=== PATIENT | female | born 1955 | race Caucasian/White ===

== ENCOUNTER 2017-01-23 13:18 | Emergency (ER) | payer BC ==
[2017-01-23 13:38] VITALS: BP 139/83
--- NOTE | 2017-01-23 14:08 | UC ---
Throat Pain/Nasal Fady HPI - HPI Summary HPI Summary: Nasal congestion, ST, cough starting [address] worsened 4-5 days ago. Yesterday was very tired and slept for 3 hours in the afternoon. Thought she might have had a fever once over the weekend. Denies difficulty breathing. - History of Current Complaint Chief Complaint: UCRespiratory Stated Complaint: SORE THROAT Time Seen by Provider: 01/23/17 13:30 Hx Obtained From: Patient ?: No Onset/Duration: Gradual Onset, Lasting Days Severity: Moderate Cough: Nonproductive Associated Signs & Symptoms: Positive: Nasal Discharge. Negative: Hoarseness, Fever, Vomiting - Allergies/Home Medications Allergies/Adverse Reactions: Allergies Allergy/AdvReac Type Severity Reaction Status Date / Time No Known Allergies Allergy Verified 06/07/16 20:32 PMH/Surg Hx/FS Hx/Imm Hx Endocrine History Of: Reports: Dyslipidemia Denies: Diabetes, Thyroid Disease Cardiovascular History Of: Reports: Hypertension Denies: Cardiac Disorders, Pacemaker/ICD Respiratory History Of: Denies: COPD, Asthma GI/ History Of: Denies: Ulcer, Renal Disease Cancer History Of: Denies: Breast Cancer - Surgical History Surgical History: None Surgery Procedure, Year, and Place: denies - Family History Known Family History: Positive: Hypertension - Social History Occupation: Retired Lives: With Family Alcohol Use: Occasionally Substance Use Type: None Smoking Status (MU): Never Smoked Tobacco - Immunization History Most Recent Influenza Vaccination: denies Most Recent Tetanus Shot: february 2016 Most Recent Pneumonia Vaccination: denies Review of Systems Constitutional: Negative Skin: Negative Eyes: Negative ENT: Sore Throat, Nasal Discharge Respiratory: Cough Cardiovascular: Negative Gastrointestinal: Negative Genitourinary: Negative Motor: Negative Neurovascular: Negative Musculoskeletal: Negative Neurological: Negative Psychological: Negative All Other Systems Reviewed And Are Negative: Yes Physical Exam Triage Information Reviewed: Yes Appearance: Well-Appearing, No Pain Distress, Obese Vital Signs: Initial Vital Signs Temp 97.5 F 01/23/17 13:30 Pulse 72 01/23/17 13:30 Resp 18 01/23/17 13:30 BP 139/83 01/23/17 13:30 Pulse Ox 99 01/23/17 13:30 Vital Signs Reviewed: Yes Eye Exam: Normal Eyes: Positive: Conjunctiva Clear ENT: Positive: Pharynx normal, Nasal congestion, TMs normal Dental Exam: Normal Neck exam: Normal Neck: Positive: Supple, Nontender, No Lymphadenopathy Respiratory Exam: Normal Respiratory: Positive: Chest non-tender, Lungs clear, Normal breath sounds, No respiratory distress, No accessory muscle use Cardiovascular Exam: Normal Cardiovascular: Positive: RRR, No Murmur Musculoskeletal Exam: Normal Neurological Exam: Normal Psychological Exam: Normal Skin Exam: Normal Throat Pain/Nasal Course/Dx - Differential Dx/Diagnosis Provider Diagnoses: URI, likely viral Discharge - Discharge Plan Condition: Stable Disposition: HOME Patient Education Materials: Upper Respiratory Infection (ED) Referrals: Kelby Suarez MD [Primary Care Provider] - If Needed Additional Instructions: Rapid strep negative. As we discussed, sore throats can be very mild and short or severe and long-lasting with respiratory viruses. In any case, you should see some clear improvement in the next 3-4 days. If not, please see your primary care provider for a recheck.
== END 2017-01-23 14:10 | disposition home or self-care (01) ==
LOC: UCEAST 13:18
DX: J06.9 Acute upper respiratory infection, unspecified (principal)
CPT/HCPCS: 87651; 99211; G0463

== ENCOUNTER 2019-11-21 07:07 | Day surgery (SDC) | payer MEDICARE, BC ==
[~2019-11-21 07:07] MED LIST: Buffered Lidocaine 1% SYRIN* 1 ML/SYRINGE INTRADERM ONE; Dexamethasone IV* 4 MG/ML 1 ML (4 MG) IV SLOW PU ONE; Dexamethasone IV* 4 MG/ML 1 ML (4 MG) ONE; Famotidine IV* 10 MG/ML 2 ML (20 mg) IV ONE; Famotidine IV* 10 MG/ML 2 ML (20 mg) ONE; Lactated Ringers 1000 ML Bag* 1,000 ML IV SCH
[2019-11-21] MEDS ORDERED: oxyCODONE/Acetamin 5/325 MG* TAB PO PRN (07:26)
[2019-11-21] MEDS ORDERED: HYDROcodone/ACETAMIN 5-325 MG* 1 TAB PO PRN (07:26)
[2019-11-21] MEDS ORDERED: Naloxone* 0.4 MG/ML 1 ML VIAL IV PRN (07:26)
[2019-11-21] MEDS ORDERED: fentaNYL* 50 MCG/ML 2 ML VIAL (100 MCG VIAL) IV PRN (07:26)
[2019-11-21] MEDS ORDERED: DiMENhydriNATE IV* 50 MG/ML VIAL IV PUSH PRN (07:26)
[2019-11-21] MEDS ORDERED: Propofol* 10 MG/ML 20 ML BTL ONE (07:58)
[2019-11-21] MEDS ORDERED: fentaNYL* 50 MCG/ML 2 ML VIAL (100 MCG VIAL) ONE (07:58)
[2019-11-21] MEDS ORDERED: Ketorolac INJ* 30 MG/ML 1 ML VIAL ONE (07:58)
[2019-11-21] MEDS ORDERED: Midazolam* 1 MG/ML 2 ML VIAL (2 MG) ONE (07:58)
[2019-11-21] MEDS ORDERED: Lidocaine 2% PF * 5 ML VIAL ONE (07:59)
[2019-11-21] MEDS ORDERED: Bupivacaine 0.25% SDV* 30 ML ONE (08:13)
[2019-11-21] MEDS ORDERED: Ondansetron INJ* 2 MG/ML VIAL ONE (08:36)
[2019-11-21 09:50] VITALS: BP 111/79
--- NOTE | 2019-11-21 13:14 | OP ---
DATE OF OPERATION: 11/21/19 - [facility] DATE OF : 51 SURGEON: Matthew Daily MD GRAIN TRIMMER: DUNIA Ramirez ANESTHESIOLOGIST: Dr. Elizabeth. ANESTHESIA: General. PRE-OP DIAGNOSIS: Right carpal tunnel syndrome. POST-OP DIAGNOSIS: Right carpal tunnel syndrome. OPERATIVE PROCEDURE: Right endoscopic carpal tunnel release. DESCRIPTION OF PROCEDURE: Ms. Shukla was seen in the preoperative holding area. The correct side, site, and procedure were identified. We came back to the operating room. The arm was prepped and draped in the usual fashion and a time-out was performed. The arm was exsanguinated with the Esmarch and the tourniquet was inflated to 225 mmHg. A 1-cm incision was made just ulnar to the palmaris longus tendon. Dissection was carried down and placed a 2-prong skin hook underneath the distal antebrachial fascia. The carpal tunnel was dilated and then the MicroAire endoscopic carpal tunnel system was introduced. Once I had it in the appropriate location, I elevated the blade and the transverse carpal ligament was released along its ulnar aspect from distal to proximal. I then confirmed the release distally. I then released the distal antebrachial fascia proximally with the tenotomy scissors. The wound was then irrigated out. Skin was closed with 4-0 Prolene suture and Steri-Strips. 0.25% Marcaine was infiltrated. A soft dressing was applied and she was taken to the recovery room in stable condition. [id number] #: [id number] MTDD
== END 2019-11-21 10:15 | disposition home or self-care (01) ==
LOC: OREAST 07:07
PROVIDERS: ATTEND Orthopaedic Surgery Hand Surgery
DX: G56.01 Carpal tunnel syndrome, right upper limb (principal); I10 Essential (primary) hypertension; I49.3 Ventricular premature depolarization; I49.1 Atrial premature depolarization; E78.5 Hyperlipidemia, unspecified; G47.33 Obstructive sleep apnea (adult) (pediatric); M19.90 Unspecified osteoarthritis, unspecified site
CPT/HCPCS: J1100; J1885; J2250; J2405; J2704; J3010; J3490